=== PATIENT | male | born 1950 | race African-American/Black ===

== ENCOUNTER 2021-10-28 09:07 | Inpatient (IN) ==
[2021-10-28] MEDS ORDERED: PROMETHAZINE 25 MG/1 ML VIAL IM PRN (09:08)
[2021-10-28] MEDS ORDERED: ACETAMINOPHEN 325 MG TABLET PO PRN (09:08)
[2021-10-28] MEDS ORDERED: ONDANSETRON 4 MG/2 ML VIAL IV PRN ×2 (09:08→14:20)
[2021-10-28] MEDS ORDERED: HYDROmorphone 2 MG/1 ML VIAL IV PRN (09:08)
[2021-10-28] MEDS ORDERED: SODIUM CHLORIDE 0.9% 1,000 ML IV ONE (13:11)
[2021-10-28 13:58] LABS: Basophils # 0.1 10*3/uL (0.0-0.2); Basophils % 1.2 % (0.0-0.8); Eosinophils # 0.1 10*3/uL (0.0-0.87); Eosinophils % 1.2 % (0.00-10.9); Hematocrit 44.6 VOL% (42.0-52.0); Hemoglobin 14.7 GM/DL (14.0-18.0); Immature Granulocytes % 0.2 %; Immature Granulocytes Absolute 0.01 #; Lymphocytes # 1.3 10*3/uL (1.4-4.0); Lymphocytes % 26.6 % (21.2-54.2); Mean Corpuscular Volume 87.8 FL (87-102); Mean Platelet Volume 11.2 FL (9.6-12.0); Monocytes % 9.6 % (1.7-12.7); Neutrophils % 61.2 % (38.7-73.9); Platelet Count 332 T/CUMM (130-400); Red Blood Count 5.08 MC/CUMM (3.8-5.5); Red Cell Distribution Width 11.3 % (9.3-17.3); White Blood Count 4.9 T/CUMM (4-12)
[2021-10-28 14:08] LABS: PT Patient Result 11.5 SECS (10.5-12.0); Partial Thromboplastin Time 28.7 SECS (23.8-32.1)
[2021-10-28 14:18] LABS: Alanine Aminotransferase 18 U/L (16-61); Albumin 3.5 G/DL (3.4-5.0); Alkaline Phosphatase 113 U/L (45-117); Aspartate Amino Transferase 12 U/L (0-37); Bilirubin,Total < 0.39 MG/DL (0.20-1.00); Blood Urea Nitrogen 29 MG/DL (7-18); Calcium 9.3 MG/DL (8.5-10.1); Carbon Dioxide 27 MMOL/L (21-32); Estimated Glom Filtration Rate 61 ML/MIN; Glucose 292 MG/DL (74-106); Osmolality,Calculated 267.5 MOS/KG (273-304); Potassium 5.4 MMOL/L (3.5-5.1); Sodium 125 MMOL/L (136-145); Total Protein 7.8 G/DL (6.4-8.2)
[2021-10-28] MEDS ORDERED: MECLIZINE 25 MG TABLET PO PRN (14:18)
[2021-10-28] MEDS ORDERED: GLUCAGON 1 MG VIAL IM PRN ×2 (14:18→20:49)
[2021-10-28] MEDS ORDERED: DEXTROSE 10% 250 ML BAG IV PRN (14:18)
[2021-10-28] MEDS ORDERED: hydrALAZINE 20 MG/1 ML VIAL IV PRN (14:29)
[2021-10-28] MEDS ORDERED: INSULIN LISPRO 100 UNIT/ML SUBCUT SCH (17:00)
[2021-10-28] MEDS: AMOXICILLIN 500 MG CAPSULE PO SCH (17:40)
[2021-10-28] MEDS: CLARITHROMYCIN 500 MG TABLET PO SCH (17:40)
[2021-10-28] MEDS: SODIUM CHLORIDE 0.9% 1,000 ML IV SCH (18:58)
[2021-10-28] MEDS: DOXAZOSIN 1 MG TABLET PO SCH (20:33)
[2021-10-28] MEDS: PANTOPRAZOLE 40 MG TABLET PO SCH (20:33)
[2021-10-28] MEDS ORDERED: DEXTROSE 50% 25 GM/50 ML VIAL IV PRN (20:49)
[2021-10-28] MEDS ORDERED: TAMSULOSIN 0.4 MG CAPSULE PO SCH (21:00)
[2021-10-28] MEDS ORDERED: SIMVASTATIN 10 MG TABLET PO SCH (21:00)
[2021-10-28] MEDS: INSULIN REGULAR 100 UNIT/ML SUBCUT SCH (22:01)
[2021-10-29] MEDS: SODIUM CHLORIDE 0.9% 1,000 ML IV SCH ×3 (04:15→20:06)
[2021-10-29 05:09] LABS: Basophils # 0.1 10*3/uL (0.0-0.2); Basophils % 1.5 % (0.0-0.8); Eosinophils # 0.1 10*3/uL (0.0-0.87); Eosinophils % 2.3 % (0.00-10.9); Hematocrit 39.9 VOL% (42.0-52.0); Hemoglobin 13.1 GM/DL (14.0-18.0); Immature Granulocytes % 0.3 %; Immature Granulocytes Absolute 0.01 #; Lymphocytes # 1.5 10*3/uL (1.4-4.0); Mean Corpuscular HGB Conc 32.8 GM/DL (32-36); Mean Corpuscular Volume 87.9 FL (87-102); Mean Platelet Volume 11.6 FL (9.6-12.0); Neutrophils % 48.9 % (38.7-73.9); Platelet Count 287 T/CUMM (130-400); Red Blood Count 4.54 MC/CUMM (3.8-5.5); Red Cell Distribution Width 11.3 % (9.3-17.3)
[2021-10-29 05:29] LABS: Alanine Aminotransferase 16 U/L (16-61); Albumin 2.9 G/DL (3.4-5.0); Alkaline Phosphatase 92 U/L (45-117); Aspartate Amino Transferase 10 U/L (0-37); Bilirubin,Total < 0.39 MG/DL (0.20-1.00); Blood Urea Nitrogen 25 MG/DL (7-18); Calcium 8.5 MG/DL (8.5-10.1); Carbon Dioxide 27 MMOL/L (21-32); Estimated Glom Filtration Rate 89 ML/MIN; Glucose 155 MG/DL (74-106); Osmolality,Calculated 272.4 MOS/KG (273-304); Sodium 133 MMOL/L (136-145); Total Protein 6.4 G/DL (6.4-8.2)
[2021-10-29] MEDS ORDERED: INDOCYANINE GREEN 25 MG VIAL IV ONE (07:44)
[2021-10-29] MEDS: INSULIN REGULAR 100 UNIT/ML SUBCUT SCH ×4 (08:43→20:06)
[2021-10-29] MEDS: AMOXICILLIN 500 MG CAPSULE PO SCH ×2 (08:44→16:30)
[2021-10-29] MEDS: CLARITHROMYCIN 500 MG TABLET PO SCH ×2 (08:44→16:31)
[2021-10-29] MEDS: PANTOPRAZOLE 40 MG TABLET PO SCH ×2 (08:44→20:07)
[2021-10-29] MEDS ORDERED: ENALAPRIL 20 MG TABLET PO SCH (09:00)
[2021-10-29] MEDS ORDERED: PANTOPRAZOLE 40 MG TABLET PO SCH (09:00)
[2021-10-29] MEDS ORDERED: BUPIVACAINE MPF 0.25% 30 ML VIAL ONE (10:53)
[2021-10-29] MEDS ORDERED: TISSUE ADHESIVE 1 EACH APPLICATOR TOP ONE (10:53)
[2021-10-29] MEDS ORDERED: LIDOCAINE 1%/EPI INJ 20 ML VIAL ONE (10:53)
[2021-10-29] MEDS ORDERED: LACTATED RINGERS 1,000 ML IV SCH (11:00)
[2021-10-29] MEDS ORDERED: ENOXAPARIN 40 MG/0.4 ML SYRINGE SUBCUT SCH (14:00)
[2021-10-29] MEDS ORDERED: DEXTROSE 50% 25 GM/50 ML VIAL IV PRN (15:25)
[2021-10-29] MEDS ORDERED: GLUCAGON 1 MG VIAL IM PRN (15:25)
[2021-10-29] MEDS: DOXAZOSIN 1 MG TABLET PO SCH (20:07)
[2021-10-30] MEDS: SODIUM CHLORIDE 0.9% 1,000 ML IV SCH (03:30)
[2021-10-30] MEDS: INSULIN REGULAR 100 UNIT/ML SUBCUT SCH (09:08)
[2021-10-30] MEDS: AMOXICILLIN 500 MG CAPSULE PO SCH (09:08)
[2021-10-30] MEDS: CLARITHROMYCIN 500 MG TABLET PO SCH (09:08)
[2021-10-30] MEDS: PANTOPRAZOLE 40 MG TABLET PO SCH (09:08)
[2021-10-30 11:59] VITALS: BP 143/67
== END 2021-10-30 12:15 | disposition home or self-care (01) | DRG 418 ==
LOC: N.3E 11:51
PROVIDERS: ADMIT Surgery; ATTEND Surgery